=== PATIENT | male | born 1985 | race Caucasian/White ===

== ENCOUNTER 2023-06-19 12:52 | Outpatient (CLI) | payer OTHER, SELFPAY | END 2023-06-19 12:53 | disposition home or self-care (01) | LOC: ANHBWCAUD 12:53 | PROVIDERS: PCP Family Medicine; Visit Provider Otolaryngology | DX: H90.12 Conductive hearing loss, unilateral, left ear, with unrestricted hearing on the contralateral side (principal) | CPT/HCPCS: 92557; 92567 ==